=== PATIENT | male | born 1970 | race Caucasian/White ===

== ENCOUNTER 2024-03-08 18:08 | Emergency (ER) | payer BC, SELFPAY ==
--- NOTE | ~2024-03-08 | XR_ITS ---
CHEST RADIOGRAPH, PA AND LATERAL CLINICAL HISTORY: CHEST TIGHTNESS SOB . COMPARISON: None available TECHNIQUE: PA and lateral views of the chest. FINDINGS The cardiomediastinal silhouette is unremarkable. The lungs are clear. Visualized osseous structures and soft tissues are unremarkable. IMPRESSION: No focal infiltrate or effusion. Reviewed, dictated and finalized at location [facility]
[2024-03-08 18:35] VITALS: BP 127/88; PULSE 75; RESP 20; TEMP 36.4; O2SAT 97
--- NOTE | 2024-03-08 22:52 | ECG_ITS ---
Test Date: 2024-03-08 23:30:57 Measurements Intervals Welch Rate: 70 P: 11 NC: 159 QRS: 19 QRSD: 97 T: 22 QT: 396 QTc: 429 Interpretive Statements SINUS RHYTHM MODERATE T-WAVE ABNORMALITY, CONSIDER LATERAL ISCHEMIA [-0.1+ mV T-WAVE IN I/aVL/V5/V6] MODERATE T-WAVE ABNORMALITY, CONSIDER INFERIOR ISCHEMIA [-0.1+ mV T-WAVE IN II/aVF] No previous ECG available for comparison Electronically Signed On 03-09-2024 11:55:01 TRAINING CONSULTANT by Liv Tan
[2024-03-08 23:11] VITALS: BP 138/89; PULSE 72; PULSE 81; RESP 20; TEMP 36.6; O2SAT 99
[2024-03-08 23:12] VITALS: O2SAT 99
[2024-03-08 23:26] LABS: Basophils Percent Auto 0.4 % (0.2-1.2); Eosinophils Absolute Auto 0.1 K/mm3 (0-0.3); Eosinophils Percent Auto 1.3 % (0-4.4); Hematocrit 44.4 % (42.0-52.0); Hemoglobin 15.3 g/dL (14.0-18.0); Immature Granulocyte Absolute 0.02 K/mm3 (0.00-0.031); Immature Granulocyte Percent A 0.2 % (0-0.5); Immature Platelet Fraction Pct 5.4 % (0.9-11.2); Lymphocytes Absolute Auto 1.99 K/mm3 (0.9-3.2); Lymphocytes Percent Auto 23.8 % (18.3-44.2); Mean Corpuscular HGB Conc 34.5 g/dl (32-36); Mean Corpuscular Hemoglobin 31.5 pg (26-34); Mean Corpuscular Volume 91.4 fl (80-100); Mean Platelet Volume 11.1 fl (7.4-10.4); Monocytes Absolute Auto 0.5 K/mm3 (0.1-0.6); Monocytes Percent Auto 6.1 % (2.6-8.5); Neutrophils Absolute Auto 5.7 K/mm3 (1.3-6.7); Neutrophils Percent Auto 68.2 % (45.5-73.1); Platelet Count Result 138 k/mm3 (150-375); Red Blood Count 4.86 M/mm3 (4.6-6.20); Red Cell Distribution Width 13.6 % (11.5-14.5); White Blood Count 8.4 K/mm3 (4.5-10.0)
[2024-03-08 23:35] LABS: Alanine Aminotransferase 34 U/L (6-50); Albumin Level 4.1 g/dL (3.5-5.1); Alkaline Phosphatase 96 U/L (38-126); Anion Gap 8 mmol/L (4-12); Aspartate Amino Transferase 26 U/L (17-59); Bilirubin,Total 0.6 mg/dL (0.2-1.3); Blood Urea Nitrogen 18 mg/dL (9-20); Calcium 9.1 mg/dL (8.4-10.2); Carbon Dioxide 28 mmol/L (22-30); Chloride 102 mmol/L (98-107); Estimated CRCL calculation 114 ml/min; Estimated Glomerular Filt Rate > 60; Glucose 153 mg/dL (65-110); Lipase 47 U/L (23-300); Potassium 3.5 mmol/L (3.4-5.0); Prothrombin Time 13.5 Seconds (11.1-14.7); Sodium 138 mmol/L (137-145)
[2024-03-08 23:36] LABS: Partial Thromboplastin Time 26.3 Seconds (22.3-36.8)
[2024-03-08 23:40] LABS: D Dimer < 0.27 ug/mL (<0.48)
[2024-03-08 23:46] LABS: Troponin I < 0.012 ng/mL (0.000-0.034)
--- NOTE | 2024-03-09 00:50 | ED_ITS ---
HPI - SOB/Dyspnea General Chief Complaint: Shortness of Breath/Dyspnea Stated Complaint: SOB, chest tightness Time Seen by Provider: 03/08/24 23:24 Source: patient Mode of arrival: ambulatory Limitations: no limitations History of Present Illness HPI Narrative: Patient is 53-year-old male, with PMH of HTN, DM, who presents the ED with report of shortness of breath. Patient reports over the last 3-4 days, he has been having increased shortness of breath. He states it seems to occur with exertion. Denies shortness of breath with laying flat. Denies PND. States he occasionally feels a sensation or tightness in his chest, but denies chest pain. He went to [facility] today, tested negative for COVID/flu, and had EKG performed, which he states was told was abnormal. He was then discharged with the diagnosis of upper respiratory infection. He contacted his primary care doctor about this and was referred to the ED for further evaluation. Patient does note history of previously diagnosed T-wave inversions. Denies previous cardiac history, but does have strong family history. Denies lower extremity pain or swelling. Does have some nasal congestion, but denies significant cough. Denies fevers. Related Data Allergies Allergy/AdvReac Type Severity Reaction Status Date / Time No Known Allergies Allergy Verified 03/08/24 18:10 Review of Systems 2 Review of Systems: All systems reviewed & are unremarkable except as noted in HPI. All systems reviewed & are unremarkable except as noted in HPI and below PMFSH Past Medical History Medical History (Updated 03/09/24 @ 02:42 by Radha Wang PA-C) Diabetes HTN (hypertension) Exam 2 Narrative: GENERAL: Well appearing, obese with BMI of 38.7, non-toxic, in no acute distress. HEAD: Normocephalic, atraumatic. RESPIRATORY: Airway patent, respirations nonlabored. Clear to auscultation bilaterally, no rales, rhonchi, wheezing. No significant focal lung sounds. CARDIOVASCULAR: Regular rate and rhythm without murmurs, rubs, or gallops. MUSCULOSKELETAL: Moves all extremities. No gross deformities. No peripheral edema. No calf tenderness. SKIN: Warm, dry, normal color. NEURO: A&O X3. Speech clear. Cranial nerves II-XII grossly intact. Steady gait. No ataxic movements. PSYCHIATRIC: Appropriate mood and affect. Normal interaction. Course Vital Signs Vital signs: Vital Signs Temperature 97.6 F 03/08/24 18:35 Pulse Rate 75 03/08/24 18:35 Respiratory Rate 20 03/08/24 18:35 Blood Pressure 127/88 03/08/24 18:35 Pulse Oximetry 97 03/08/24 18:35 Oxygen Delivery Room Air 03/08/24 18:35 Temperature 97.8 F 03/08/24 23:11 Pulse Rate 72 03/08/24 23:11 Respiratory Rate 20 03/08/24 23:11 Blood Pressure 138/89 03/08/24 23:11 Pulse Oximetry 99 03/08/24 23:12 Oxygen Delivery Room Air 03/08/24 23:12 MDM - SOB/Dyspnea MDM Narrative Medical decision making narrative: Patient presents to ED with 3-4 day history of shortness of breath, intermittent chest tightness. Vital signs are stable upon arrival. Patient is in no acute distress. No evidence of respiratory distress. EKG does shows evidence of T- wave inversions, but patient reports this is chronic for him. Troponin is undetectable. D-dimer is within normal range. Chest x-ray is clear. Remainder of basic laboratory studies are unremarkable. Overall workup is reassuring, non revealing. I have low suspicion for ACS at this time. Suspicious for URI. Patient did test negative for COVID influenza at urgent care today. Declined further viral swabs here. Overall feel patient is safe for discharge home. He does have some risk factors for heart disease and given strong FHx, I recommended that patient have close follow-up with his primary care doctor and Cardiology for further evaluation and potential outpatient stress testing. He states his PCP is aware of ED visit. Discussed very strict return precautions should symptoms continue or worsen. Patient voiced understanding. He feels comfortable going home. He was ambulated throughout the ED and no hypoxia was noted. He tolerated this very well. Patient discharged in stable condition. Vital signs stable at time of D/C. Medical Records Attestation: I reviewed the patient's medical records. Lab Data Attestation: I reviewed the patient's lab results. 03/08/24 23:18 03/08/24 23:18 Labs: Lab Results 03/08/24 Range/Units 23:18 WBC 8.4 (4.5-10.0) K/mm3 RBC 4.86 (4.6-6.20) M/mm3 Hgb 15.3 (14.0-18.0) g/dL Hct 44.4 (42.0-52.0) % MCV 91.4 (80-100) fl MCH 31.5 (26-34) pg MCHC 34.5 (32-36) g/dl RDW 13.6 (11.5-14.5) % Plt Count 138 L (150-375) k/mm3 MPV 11.1 H (7.4-10.4) fl Immature Gran % (Auto) 0.2 (0-0.5) % Neut % (Auto) 68.2 (45.5-73.1) % Lymph % (Auto) 23.8 (18.3-44.2) % [place] % (Auto) 6.1 (2.6-8.5) % Eos % (Auto) 1.3 (0-4.4) % Baso % (Auto) 0.4 (0.2-1.2) % Lymph # (Auto) 1.99 (0.9-3.2) K/mm3 [place] # (Auto) 0.5 (0.1-0.6) K/mm3 Eos # (Auto) 0.1 (0-0.3) K/mm3 Baso # (Auto) 0.0 (0.0-0.1) K/mm3 Abs Immat Gran (auto) 0.02 (0.00-0.031) K/mm3 Absolute Neuts (auto) 5.7 (1.3-6.7) K/mm3 Absolute Nucleated RBC 0.000 (0.0-0.012) K/mm3 Nucleated RBC % 0.0 (0.0-0.2) % % Immature Plt Fraction 5.4 (0.9-11.2) % PT 13.5 (11.1-14.7) Seconds INR 1.0 APTT 26.3 (22.3-36.8) Seconds D-Dimer < 0.27 (<0.48) ug/mL Sodium 138 (137-145) mmol/L Potassium 3.5 (3.4-5.0) mmol/L Chloride 102 (98-107) mmol/L Carbon Dioxide 28 (22-30) mmol/L Anion Gap 8 (4-12) mmol/L BUN 18 (9-20) mg/dL Creatinine 0.84 (0.7-1.3) mg/dL Estim Creat Clear Calc 114 ml/min Estimated GFR > 60 (59 - ) Glucose 153 H (65-110) mg/dL Calcium 9.1 (8.4-10.2) mg/dL Total Bilirubin 0.6 (0.2-1.3) mg/dL AST 26 (17-59) U/L ALT 34 (6-50) U/L Alkaline Phosphatase 96 (38-126) U/L Troponin I < 0.012 (0.000-0.034) ng/mL Total Protein 7.0 (6.3-8.2) g/dL Albumin 4.1 (3.5-5.1) g/dL Lipase 47 (23-300) U/L Imaging Data Attestation: I personally reviewed and interpreted this imaging study as follows: Radiologist's impression: ITS Impressions Chest X-Ray 03/08/24 23:39 IMPRESSION: No focal infiltrate or effusion. ECG Data EKG #1: Attestation: I personally reviewed and interpreted this ECG as follows: ECG completion date: 03/08/24 ECG completion time: 23:30 EKG Interpretation: normal rate (70), sinus rhythm and non-specific ST changes Discharge Plan Discharge Clinical Impression: Shortness of breath Patient Disposition: Home, Self-Care Condition: Stable Instructions: Antibiotic Form, Upper Respiratory Infection (ED), Dyspnea (ED), Shortness of Breath (ED) Additional Instructions: Your workup here was reassuring. Recommend close follow-up with primary care doctor and Cardiology for further evaluation. Continue to monitor symptoms. Return to the ED if you experience worsening or severe symptoms, chest pain, pain or swelling in legs, passing out, severe dizziness, or any other symptoms of concern. Patient Language: Iranian Follow-up/Referrals: Baljinder Gonzalez MD [Physician] - (CARDIOLOGY) Kaylee,Omari Deluca MD [Primary Care Provider] - Time of Disposition: 01:37
--- OUTSIDE RECORDS SUMMARY | 2024-03-09 06:14 | XMS_ITS | CONTINUITY OF CARE DOCUMENT ---
Author Name ari chapman Address Unknown Organization [facility] Address [address] [place] [address] Phone [phone] Care Team Providers Care Attending Urologist Name Role Phone Rei MIRELES, Naida Unavailable INSURANCE PROVIDERS Payer name Policy type / Coverage type J Luis red constitution party ID [facility] [id number]
--- OUTSIDE RECORDS SUMMARY | 2024-03-09 06:24 | XMS_ITS | Data Portability ---
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 Plan of Treatment Reminders Order Date Submit Date Provider Last Modified By Organization Details Last Modified Time Details Appointments None record ed. Lab None record ed. Referral None record ed. Procedures None record ed. Surgeries None record ed. Imaging None record ed. Medication Orders None record ed. Patient TargetsNo targets recorded. Patient InstructionsNo instructions recorded. Reason for Referral None Reported. Results Created Date Observation Date Name Description Value Unit Range Abnormal Flag Note LastModifiedBy Organization Detail LastModifiedTime 01/12/20 22 01/11/2022 HEMOG LOBIN A1C HA1C 8.9 % 4.0-6. 0 high Diabe merrill Scree ignacio Crite abhijit: <5.7% Consi stent with absen ce of diabe merrill 5.7-6 .4% Consi stent with incre ased risk for diabe merrill (pred iabet es) >OR=6 .5% Consi stent with diabe merrill REFER ENCE: Diabe merrill Care 2016, 39(Olivares ppl.1 ):s13 -s22 Not Available [facility] (Lab) [address] [place], [address], 01/11/2022 20:32:35 01/12/20 22 01/11/2022 T3 FREE free T3 3.7 pg/mL 2.77-5 .27 Not Available [facility] (Lab) [address] [place], [address], 01/11/2022 18:50:29 01/12/20 22 01/11/2022 CBC/C OMPLE TE BLD COUNT W/DIF F white blood cells 3.8 x10'3 /uL 4.2-10 .8 low Not Available [facility] (Lab) [address] [place], [address], 01/11/2022 15:45:04 01/12/20 22 01/11/2022 CBC/C OMPLE TE BLD COUNT W/DIF F red blood cells 5.27 x10'6 /uL 4.10-5 .80 Not Available [facility] (Lab) [address] [place], [address], 01/11/2022 15:45:04 01/12/20 22 01/11/2022 CBC/C OMPLE TE BLD COUNT W/DIF F hemoglobin 15.9 g/dL 13.2-1 7.0 Not Available [facility] (Lab) [address] [place], [address], 01/11/2022 15:45:04 01/12/20 22 01/11/2022 CBC/C OMPLE TE BLD COUNT W/DIF F hematocrit 49.1 % 39.3-5 0.0 Not Available [facility] (Lab) [address] [place], [address], 01/11/2022 15:45:04 01/12/20 22 01/11/2022 CBC/C OMPLE TE BLD COUNT W/DIF F mean red cell volume 93.2 fL 80.0-9 7.0 Not Available [facility] (Lab) [address] [place], [address], 01/11/2022 15:45:04 01/12/20 22 01/11/2022 CBC/C OMPLE TE BLD COUNT W/DIF F mean red cell hemoglobin 30.2 pg 27.0-3 3.0 Not Available [facility] (Lab) [address] [place], [address], 01/11/2022 15:45:04 01/12/20 22 01/11/2022 CBC/C OMPLE TE BLD COUNT W/DIF F mean RBC HGB concentratio n 32.4 g/dL 31.0-3 6.0 Not Available [facility] (Lab) [address] [place], [address], 01/11/2022 15:45:04 01/12/20 22 01/11/2022 CBC/C OMPLE TE BLD COUNT W/DIF F red cell distribution width 14.4 % 11.8-1 5.5 Not Available [facility] (Lab) [address] [place], [address], 01/11/2022 15:45:04 01/12/20 22 01/11/2022 CBC/C OMPLE TE BLD COUNT W/DIF F platelets 126 x10'3 /uL 150-40 0 low Not Available [facility] (Lab) [address] [place], [address], 01/11/2022 15:45:04 01/12/20 22 01/11/2022 CBC/C OMPLE TE BLD COUNT W/DIF F mean platelet volume 12.4 fL 9.0-12 .4 Not Available [facility] (Lab) [address] [place], [address], 01/11/2022 15:45:04 01/12/20 22 01/11/2022 CBC/C OMPLE TE BLD COUNT W/DIF F neutrophils 52.6 % 39.0-7 2.0 Not Available [facility] (Lab) [address] [place], [address], 01/11/2022 15:45:04 01/12/20 22 01/11/2022 CBC/C OMPLE TE BLD COUNT W/DIF F lymphocytes 31.4 % 16.0-4 7.0 Not Available [facility] (Lab) [address] [place], [address], 01/11/2022 15:45:04 01/12/20 22 01/11/2022 CBC/C OMPLE TE BLD COUNT W/DIF F monocytes 13.7 % 5.0-12 .0 high Not Available [facility] (Lab) [address] [place], [address], 01/11/2022 15:45:04 01/12/20 22 01/11/2022 CBC/C OMPLE TE BLD COUNT W/DIF F eosinophils 1.8 % 1.0-7. 0 Not Available [facility] (Lab) [address] [place], [address], 01/11/2022 15:45:04 01/12/20 22 01/11/2022 CBC/C OMPLE TE BLD COUNT W/DIF F basophils 0.5 % 0.0-2. 0 Not Available [facility] (Lab) [address] [place], [address], 01/11/2022 15:45:04 01/12/20 22 01/11/2022 CBC/C OMPLE TE BLD COUNT W/DIF F neutrophils, absolute count 1.99 x10'3 /uL 1.5-8. 0 Not Available [facility] (Lab) [address] [place], [address], 01/11/2022 15:45:04 01/12/20 22 01/11/2022 CBC/C OMPLE TE BLD COUNT W/DIF F lymphocytes, absolute count 1.19 x10'3 /uL 1.07-3 .43 Not Available [facility] (Lab) [address] [place], [address], 01/11/2022 15:45:04 01/12/20 22 01/11/2022 CBC/C OMPLE TE BLD COUNT W/DIF F monocytes, absolute count 0.52 x10'3 /uL 0.29-0 .99 Not Available [facility] (Lab) [address] [place], [address], 01/11/2022 15:45:04 01/12/20 22 01/11/2022 CBC/C OMPLE TE BLD COUNT W/DIF F eosinophils, absolute count 0.07 x10'3 /uL 0.02-0 .53 Not Available [facility] (Lab) [address] [place], [address], 01/11/2022 15:45:04 01/12/20 22 01/11/2022 CBC/C OMPLE TE BLD COUNT W/DIF F basophils, absolute count 0.02 x10'3 /uL 0.01-0 .08 Not Available [facility] (Lab) [address] [place], [address], 01/11/2022 15:45:04 01/12/20 22 01/11/2022 PSA SCREE N PSA medicare screen 0.95 NG/mL 0.00-4 .00 Not Available [facility] (Lab) [address] [place], [address], 01/11/2022 13:19:05 01/12/20 22 01/11/2022 TSH thyroid-stim ulating hormone 2.080 uIU/m L 0.465- 4.680 Not Available [facility] (Lab) [address] [place], [address], 01/11/2022 13:18:49 01/12/20 22 01/11/2022 T4 FREE free T4 0.98 NG/dL 0.78-2 .19 Not Available [facility] (Lab) [address] [place], [address], 01/11/2022 13:06:18 01/12/20 22 01/11/2022 LIPID PANEL cholesterol 129 mg/dL 140-19 9 low NIH JAMI NSUS RECOM MENDA TION FOR CATALINA STERO L: ADULT CHILD LOW RISK: <200 <170 BORDE RLINE : <200- 239 ----- HIGH RISK: >240 >200 Not Available [facility] (Lab) [address] [place], [address], 01/11/2022 12:38:57 01/12/20 22 01/11/2022 LIPID PANEL triglyceride s 192 mg/dL 0-150 high NIH JAMI NSUS REPOR T RECOM MENDA TION FOR TRIGL YCERI ORI: ADULT CHILD LOW RISK: <150 ----- BODER LINE: 150-1 99 ----- HIGH RISK: >200 ----- Not Available [facility] (Lab) [address] [place], [address], 01/11/2022 12:38:57 01/12/20 22 01/11/2022 LIPID PANEL HDL cholesterol 33 mg/dL 40- low Not Available [facility] (Lab) [address] [place], [address], 01/11/2022 12:38:57 01/12/20 22 01/11/2022 LIPID PANEL LDL cholesterol, calculated 58 mg/dL 0-130 NIH JAMI NSUS REPOR T RECOM MENDA TIONS FOR LDL: ADULT CHILD LOW RISK <130 <110 (OPTI MAL LDL) <100 ----- BORDE RLINE : 130-1 59 ----- HIGH RISK: >160 >130 A TRIGL YCERI DE RESUL T >400 INVAL IDATE S THE CALCU LATIO N FOR LDL FRACT IONAT ION - THE LDL RESUL T WILL NOT BE REPOR GABY. Not Available [facility] (Lab) [address] [place], [address], 01/11/2022 12:38:57 01/12/2001/11/2022 COMPR EHENS WILLIE METAB OLIC PANEL bilirubin, total 0.90 mg/dL 0.20-1 .30 Not Available [facility] (Lab) [address] [place], [address], 01/11/2022 12:38:51 01/12/20 22 01/11/2022 COMPR EHENS WILLIE METAB OLIC PANEL calcium 8.2 mg/dL 8.4-10 .2 low Not Available [facility] (Lab) [address] [place], [address], 01/11/2022 12:38:51 01/12/20 22 01/11/2022 COMPR EHENS WILLIE METAB OLIC PANEL total protein 6.2 g/dL 6.3-8. 2 low Not Available [facility] (Lab) [address] [place], [address], 01/11/2022 12:38:51 01/12/20 22 01/11/2022 COMPR EHENS WILLIE METAB OLIC PANEL albumin 3.9 g/dL 3.4-5. 0 Not Available [facility] (Lab) [address] [place], [address], 01/11/2022 12:38:51 01/12/20 22 01/11/2022 COMPR EHENS WILLIE METAB OLIC PANEL globulin 2.3 g/dL 2.6-4. 2 low Not Available [facility] (Lab) [address] [place], [address], 01/11/2022 12:38:51 01/12/20 22 01/11/2022 COMPR EHENS WILLIE METAB OLIC PANEL A/G ratio 1.7 ratio 1.0-2. 0 Not Available [facility] (Lab) [address] [place], [address], 01/11/2022 12:38:51 01/12/20 22 01/11/2022 COMPR EHENS WILLIE METAB OLIC PANEL sodium 142 mmol/ L 137-14 5 Not Available [facility] (Lab) [address] [place], [address], 01/11/2022 12:38:51 01/12/20 22 01/11/2022 COMPR EHENS WILLIE METAB OLIC PANEL potassium 3.9 mmol/ L 3.5-5. 1 Not Available [facility] (Lab) [address] [place], [address], 01/11/2022 12:38:51 01/12/20 22 01/11/2022 COMPR EHENS WILLIE METAB OLIC PANEL chloride 107 mmol/ L 98-107 Not Available [facility] (Lab) [address] [place], [address], 01/11/2022 12:38:51 01/12/20 22 01/11/2022 COMPR EHENS WILLIE METAB OLIC PANEL carbon dioxide 27 mmol/ L 22-30 Not Available [facility] (Lab) [address] [place], [address], 01/11/2022 12:38:51 01/12/20 22 01/11/2022 COMPR EHENS WILLIE METAB OLIC PANEL anion gap 11.9 mmol/ L 14-22 low Not Available [facility] (Lab) [address] [place], [address], 01/11/2022 12:38:51 01/12/20 22 01/11/2022 COMPR EHENS WILLIE METAB OLIC PANEL glucose 244 mg/dL 70-99 high Not Available [facility] (Lab) [address] [place], [address], 01/11/2022 12:38:51 01/12/20 22 01/11/2022 COMPR EHENS WILLIE METAB OLIC PANEL BUN 15 mg/dL 8-19 Not Available [facility] (Lab) [address] [place], [address], 01/11/2022 12:38:51 01/12/20 22 01/11/2022 COMPR EHENS WILLIE METAB OLIC PANEL creatinine 0.83 mg/dL 0.66-1 .25 Not Available [facility] (Lab) [address] [place], [address], 01/11/2022 12:38:51 01/12/20 22 01/11/2022 COMPR EHENS WILLIE METAB OLIC PANEL GFR >60 Refer ence Range : [place] ge GFR Healt hy Adult : >60 mL/mi n/1.7 3 m2 Chron ic Kidne y Disea se: 15-60 mL/mi n/1.7 3 m2 Kidne y Failu re: <15/m L/min /1.73 m2 www.n iddk. nih.g ov The MDRD study equat ion has not been valid ated in child marcelina <18 years of age; pregn ant women ; the elder ly >85 years of age; or in some racia l or ethni c subgr oups, such as Hispa nics. Outsi de the valid ated yomi eters , estim ated GFR is less accur ate, requi ring clini tami judgm ent on a case- by-ca se basis . Clini tami inter preta tion for other races and ages must be made by the clini zaid. The MDRD study equat ion has not been valid ated for the evalu ation of serum creat inine relat ed to nutri jose daniel l statu s or medic ation usage . For perso ns <18 years of age, a pedia tric GFR calcu lator is avail able on the [facility] websi te: https :[email or web address] hernandez.[email or web address] [email or web address] carolynn/pr ofess ional s/kdo qi/gf r_cal culat or Not Available [facility] (Lab) [address] [place], [address], 01/11/2022 12:38:51 01/12/20 22 01/11/2022 COMPR EHENS WILLIE METAB OLIC PANEL alkaline phosphatase 114 U/L 38-126 Not Available [facility] (Lab) [address] [place], [address], 01/11/2022 12:38:51 01/12/20 22 01/11/2022 COMPR EHENS WILLIE METAB OLIC PANEL alanine aminotransfe rase 50 U/L 0-[address] [facility] (Lab) [address] [place], [address], 01/11/2022 12:38:51 01/12/20 22 01/11/2022 COMPR EHENS WILLIE METAB OLIC PANEL aspartate aminotransfe rase 30 U/L 15-[address] [facility] (Lab) [address] [place], [address], 01/11/2022 12:38:51 12/16/19 22 12/16/2021 XR, elbow No observ ation record ed. [id number] [id number] [facility] [address] [facility], [place], [address], 04/14/2022 16:41:40 Result Notes None recorded. Problems Name Problem SNOMED Code Status Onset Date Resolution Date Notes Provider Name and Address Organization Details Recorded Time Acute sinusitis 86218051 Active 2021 Not Available [facility] 3 16:12:42 Pain of right elbow joint 5558211247269 9109 Active 2021 Not Available [facility] 3 16:12:42 Blood chemistry outside reference range 280812346 Active 2021 Not Available [facility] 3 16:12:42 Diabetic on diet only 562091890 Active 2020 Not Available [facility] 3 16:12:42 Eruption 423530161 Active 2021 Not Available [facility] 3 16:12:42 Type 2 diabetes mellitus without complicati on 573769930 Active 2021 Not Available [facility] 3 16:12:42 Pain in left foot 3169303603031 07 Active 2018 Not Available [facility] 3 16:12:42 Pain in right foot 2403379115069 07 Active 2018 Not Available [facility] 3 16:12:42 Fever 553037798 Active 2021 Not Available [facility] 3 16:12:42 Cough 39277395 Active 2021 Not Available [facility] 3 17:56:55 Essential hypertensi on 42787701 Active 2021 Not Available [facility] 3 16:12:42 Tinea pedis 5510689 Active 2021 Not Available [facility] 3 16:12:42 Pain in testicle 42166899 Active Not Available [facility] 3 16:12:42 Diabetes mellitus 45329725 Active 2021 Not Available [facility] 3 16:12:42 Sleep apnea 92836716 Active 2020 Not Available [facility] 3 16:12:42 Weight gain 7574303 Active 2022 Not Available [facility] 3 16:12:42 Skin lesion 27911168 Active 2021 Not Available [facility] 3 16:12:42 Problem Notes None recorded. Procedures Surgical History Date Name Laterality Status Provider Name and Address Organization Details Recorded Time Vasectomy completed Not Available [facility] 0 04/14/2022 16:39:51 Imaging Results Imaging Date Name Status LastModified by Organiz ation Details LastModified Time 12/16/2021 XR, elbow completed [id number] [id number] [address], [place], [address], 04/14/2022 16:41:40 Procedure Notes None recorded. Medical Equipment None Reported. Medications Name Sig Start Date Stop Date Status Note LastModified by Organization Details LastModified Time amoxicillin 500 mg capsule 11/03 completed Not Available Not Available Not Available azithromyci n 250 mg tablet TK 2 TS PO ON DAY 1, THEN TK 1 T PO D FOR 4 DAYS 04/08 completed Not Available Not Available Not Available ondansetron HCl 4 mg tablet TAKE 1 TABLET BY MOUTH EVERY 8 HOURS NEEDED 04/20 completed Not Available Not Available Not Available prednisone 20 mg tablet TAKE 3 TABLETS BY MOUTH EVERY DAY FOR 5 DAYS 07/20 completed Not Available Not Available Not Available phentermine 37.5 mg tablet take 1 tablet 2hrs after breakfast active Not Available Not Available No t Available OneTouch Ultra Test strips USE TO TEST BLOOD SUGAR TWICE DAILY active Not Available Not Available No t Available benzonatate 100 mg capsule TAKE 1 CAPSULE BY MOUTH EVERY 8 HOURS NEEDED 07/20 completed Not Available Not Available Not Available lisinopril 10 mg tablet Take 1 tablet every day by oral route. 12/03 completed Not Available Not Available Not Available montelukast 10 mg tablet TAKE 1 TABLET BY MOUTH EVERY DAY 12/03 completed Not Available Not Available Not Available codeine 10 mg-guaifene sin 100 mg/5 mL oral liquid TAKE 7.5 ML BY MOUTH EVERY 4 HOURS NEEDED 12/03 completed Not Available Not Available Not Available testosteron e cypionate 200 mg/mL intramuscul ar oil 11/03 completed Not Available Not Available Not Available ketoconazol e 2 % topical cream APPLY TO THE AFFECTED AREA(S) BY TOPICAL ROUTE ONCE DAILY active Not Available Not Available No t Available amoxicillin 875 mg-potassiu m clavulanate 125 mg tablet TAKE 1 TABLET BY MOUTH EVERY 12 HOURS FOR 10 DAYS 07/20 completed Not Available Not Available Not Available Fish Oil 12/03 completed Not Available Not Available Not Available Cinnamon 12/03 completed Not Available Not Available Not Available Ozempic 0.25 mg or 0.5 mg (2 mg/1.5 mL) subcutaneou s pen injector inject 0.25mg wkly for 4wks then go to 0.5mg wkly 04/14 completed Not Available Not Available Not Available OneTouch Ultra2 Meter USE TO TEST BLOOD SUGAR DIRECTED TWICE DAILY active Not Available Not Available No t Available OneTouch Delica Plus Lancet 33 gauge active Not Available Not Available Not Available Vitals Date Recorded Body mass index (BMI) Body height Body weight Provider Name and Address Organization Details Last Updated DateTime 10/30/2021 39.3 kg/m2 175.26 cm 412099.57 g Not Available [facility] 04/14/2022 16:40:36 Date Recorded Body mass index (BMI) Body height Heart rate Body temperature Body weight Systolic blood pressure Diastolic blood pressure Provider Name and Address Organization Details Last Updated DateTime 2 40.2 kg/m2 175.26 cm 81 /min 98.3 [degF] 971831. 12 g 138 mm[Hg] 82 mm[Hg] Not Available [facility] 3 16:40:34 Date Recorded Body mass index (BMI) Body height Body weight Provider Name and Address Organization Details Last Updated DateTime 12/15/2021 38.4 kg/m2 175.26 cm 922109.02 g Not Available [facility] 04/14/2022 16:40:36 Date Recorded Body mass index (BMI) Body height Heart rate Body temperature Body weight Systolic blood pressure Diastolic blood pressure Provider Name and Address Organization Details Last Updated DateTime 2 39.7 kg/m2 175.26 cm 69 /min 98.6 [degF] 862283. 35 g 124 mm[Hg] 72 mm[Hg] Not Available [facility] 3 16:40:34 Date Recorded Body mass index (BMI) Body height Heart rate Body temperature Body weight Systolic blood pressure Diastolic blood pressure Provider Name and Address Organization Details Last Updated DateTime 3 38.8 kg/m2 175.26 cm 61 /min 97.6 [degF] 213849. 79 g 128 mm[Hg] 82 mm[Hg] Not Available [facility] 3 16:40:34 Social History Question Answer Notes LastModified by Organizat ion Details LastModified Time Tobacco Smoking Status Never Smoker Not Available [facility] 04/14/2022 16:39:47 Do You Have An Advance Directive? No [id number] Information not available 04/14/2022 What Is Your Level Of Alcohol Consumption? None MIGRATION.87397 83317 Information not available 04/14/2022 What Is Your Level Of Caffeine Consumption? None MIGRATION.50021 77408 Information not available 04/14/2022 In The 14 Days Before Symptom Onset, Have You Had Close Contact With A Laboratory-confi rmed COVID-19 While That Case Was Ill? No [id number].29849 [id number] Information not available 04/14/2022 In The 14 Days Before Symptom Onset, Have You Had Close Contact With A Person Who Is Under Investigation For COVID-19 While That Person Was Ill? No [id number].40390 [id number] Information not available 04/14/2022 What Type Of Diet Are You Following? SPECIFIC Low Carb Diet MIGRATION.57345 87483 Information not available 04/14/2022 What Is The Highest Grade Or Level Of School You Have Completed Or The Highest Degree You Have Received? 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 No MIGRATION.21492 67474 Information not available 04/14/2022 What Is The Fluoride Status Of Your Home? Unknown MIGRATION.38024 59954 Information not available 04/14/2022 Are There Any Guns Present In Your Home? Yes MIGRATION.82977 79815 Information not available 04/14/2022 Do You Use Insect Repellent Routinely? No MIGRATION.81325 86696 Information not available 04/14/2022 Where Do You Live? [facility] MIGRATION.20872 52708 Information not available 04/14/2022 Do You Have A Medical Power Of Senior Mechanical Project Manager? No MIGRATION.41623 08595 Information not available 04/14/2022 What Was The Date Of Your Most Recent Tobacco Screening? 04/08/2022 MIGRATION.51063 62845 Information not available 04/14/2022 Do You Have Any Pets? No MIGRATION.46062 12288 Information not available 04/14/2022 What Is Your Relationship Status? MIGRATION.38669 56313 Information not available 04/14/2022 Do You Use Your Seat Belt Or Car Seat Routinely? Yes MIGRATION.34756 66567 Information not available 04/14/2022 Do You Have Smoke And Carbon Monoxide Detectors In Your Home? Yes MIGRATION.42514 00841 Information not available 04/14/2022 Are You Passively Exposed To Smoke? No MIGRATION.81094 45020 Information not available 04/14/2022 Are There Any Smokers In Your House? No MIGRATION.92618 72575 Information not available 04/14/2022 What Types Of Sporting Activities Do You Participate In? None MIGRATION.87121 11723 Information not available 04/14/2022 Do You Feel Stressed (tense, Restless, Nervous, Or Anxious, Or Unable To Sleep At Night)? [id number] MIGRATION.96662 72741 Information not available 04/14/2022 Do You Use Any Illicit Or Recreational Drugs? No MIGRATION.82847 34759 Information not available 04/14/2022 Do You Use Sunscreen Routinely? No MIGRATION.41666 07574 Information not available 04/14/2022 Has Tobacco Cessation Counseling Been Provided? No Not Needed-ne brandy Smoked MIGRATION.06355 01353 Information not available 04/14/2022 Have You Recently Traveled Abroad? No MIGRATION.90458 86468 Information not available 04/14/2022 Do You Have Any Dietary Restrictions? No MIGRATION.63050 84880 Information not available 04/14/2022 Do You Or Have You Ever Used Any Other Forms Of Tobacco Or Nicotine? No MIGRATION.98096 38478 Information not available 04/14/2022 Sex: Male Functional Status Question Answer Note LastModified by Organizat ion Details LastModified Time What is your exercise level? None [id number] Information not available 04/14/2022 Mental Status None recorded. Family History Relationship Description Onset Age of this Age Resolved Age Notes LastModified by Organization Details LastModified Time Father Chronic obstructive pulmonary disease [id number] Not available 04/14/2022 16:39:51 Father Coronary artery bypass grafts x 4 [id number].597 [id number] Not available 04/14/2022 16:39:51 Father Heart disease MIGRATION.764 [id number] Not available 04/14/2022 16:39:51 Sister Cerebrovascu lar accident 38 [id number].375 [id number] Not available 04/14/2022 16:39:51 Brother Myocardial infarction 47 MIGRATION.824 [id number] Not available 04/14/2022 16:39:51 Mother Myocardial infarction 45 MIGRATION.348 [id number] Not available 04/14/2022 16:39:52 Mother Coronary artery bypass grafts x 4 MIGRATION.125 [id number] Not available 04/14/2022 16:39:52 Mother Heart disease MIGRATION.972 [id number] Not available 04/14/2022 16:39:52 Mother Diabetes mellitus MIGRATION.760 [id number] Not available 04/14/2022 16:39:52 Mother Malignant tumor of lung deceas ed MIGRATION.794 [id number] Not available 04/14/2022 16:39:52 Mother Kidney disease MIGRATION.481 [id number] Not available 04/14/2022 16:39:52 Medical History Condition Response NERVE DISEASE N BLINDNESS N RHEUMATIC FEVER N KIDNEY STONES N BLADDER PROBLEMS N MRSA N OTHER # 1 N POLIO N LUNG DISEASE/DISORDER N HISTORY OF DRUG ABUSE N RADIATION / CHEMOTHERAPY N COPD N Other # 2 N BLOOD DISEASES N EAR OR HEARING PROBLEMS N MUMPS N SHINGLES N DEPRESSION (INCLUDING POST ) N BOWEL PROBLEMS N STROKE/TIA N ULCERS N BENIGN PROSTATIC HYPERPLASIA N MEASLES N HYPOTENSION N MYOCARDIAL INFARCTION N OBESITY N GERD/NAUSEA N ANEURYSM N URINARY/BLADDER/KIDNEY PROBLEMS N CORONARY ARTERY DISEASE (CAD) N ADDICTION CONCERNS N Impotence N ENDOMETRIOSIS N USE OF BLOOD THINNERS N SKIN PROBLEMS N GASTROINTESTINAL DISORDER N PERIPHERAL VASCULAR DISEASE N MUSCLE,JOINT OR BONE PROBLEMS N GASTROINTESTINAL BLEEDING N BLOOD CLOTS N ASTHMA N CATARACTS N ERECTILE DYSFUNCTION N VARICOSITIES N GI PROBLEMS N Low Testosterone N INFERTILITY N AIDS/HIV N CHEMOTHERAPY / RADIATION N LIVER DISEASE N MALE HYPOGONADISM N HYPERTENSION N Deficiency N TOURETTE'S N ANXIETY DISORDER N BLOOD TRANSFUSION N ANEMIA/BLOOD DISORDER N CHRONIC EAR INFECTIONS N BRONCHITIS N TUBERCULOSIS N GLAUCOMA N FOOT PROBLEM N DIVERTICULITIS N SLEEP APNEA Y CHICKENPOX Y INFECTIOUS DISEASE N PROSTATE N HEART ARRHYTHMIA N INSOMNIA N HIGH CHOLESTEROL / HYPERLIPIDEMIA N HYPERTHYROIDISM N EYE PROBLEMS N EDEMA N CHRONIC PAIN SYNDROME N HYPOTHYROIDISM N CONSTIPATION N CAROTID BLOCKAGE N BACK / NECK PROBLEMS N HAVE YOU BEEN HOSPITALIZED OR SEEN IN [facility] IN THE PAST YEAR ? N ATHEROSCLEROSIS N BREAST PROBLEMS N DIALYSIS N ECZEMA N OSTEOPOROSIS N ARTHRITIS N APPENDICITIS N DIABETES, TYPE Y BAD TEETH N ENT N HEARTBURN / REFLUX N AUTISM SPECTRUM DISORDER (ASD) N HEPATITIS / LIVER DISEASE N GOUT N SLEEP DISORDER N ALZHEIMER'S DISEASE N Brain Problems N HERPES N DEMENTIA N SEIZURES/EPILEPSY N HEADACHES/MIGRAINES N VASCULAR DISEASE N PACEMAKER N Blood Disorder N DIZZINESS N KIDNEY DISEASE N HEART DISEASE/HEART PROBLEMS Y MULTIPLE SCLEROSIS N CARDIAC ARRHYTHMIA N CANCER: SPECIFY N Gall [place]ones N ATRIAL FIBRILLATION N PULMONARY EMBOLISM N AUTOIMMUNE DISEASE N Immunizations Vaccine Type Date Status Note Provider Nam e and Address Organization Details Recorded Time COVID-19, mRNA, LNP-S, PF, 30 mcg/0.3 mL dose 03/21/2020 completed Not Available [facility] 3 16:12:42 COVID-19, mRNA, LNP-S, PF, 30 mcg/0.3 mL dose 02/29/2020 completed Not Available [facility] 3 16:12:42 Past Encounters Encounter ID Performer Location Encounter Start Date Encounter Closed Date Diagnosis/Indication Diagnosis SNOMED-CT Code Diagnosis ICD10 Code Diagnosis Note [id number] [facility] [address] [address] 11/03/2020 00:00:00 11/16/2020 17:21:05 [id number] [facility] [place] [address] [place] [address] 03/02/2021 00:00:00 03/02/2021 11:49:07 [id number] [facility] [address] [place] [address] [address]., [address] [address] 04/20/2021 00:00:00 04/20/2021 21:59:44 [id number] [facility] [address] [place] [address] Barbie., [address] [address] 07/20/2021 00:00:00 07/20/2021 21:05:20 [id number] _ATHENA_M IGRATION_ DEFAULT_1 _1 , 10/30/2021 00:00:00 11/01/2021 14:48:00 [id number] [facility] [address] [place] [address] [place]., [address] [address] 12/03/2021 00:00:00 12/03/2021 23:09:08 [id number] [facility] [place] [address] [place] [address] 12/15/2021 00:00:00 12/15/2021 16:21:42 [id number] [facility] Internal Med [facility] [address] [place] [address] [place]., [address] [address] 01/11/2022 00:00:00 02/21/2022 17:33:13 [id number] [facility] Internal [facility] [address] [place] [address] [place]rise., [address] [address] 04/08/2022 00:00:00 04/08/2022 22:06:19 Health Concerns Section Related Observation LastModified by Organization Detai ls LastModified Time None Recorded Concern Status LastModified by Organization Details LastModified Time None Recorded Advance Directives Directive N: Payers None recorded.
== END 2024-03-09 01:30 | disposition home or self-care (01) ==
PROVIDERS: Emergency Medicine; Emergency Provider Physician Assistant; PCP Family Medicine
DX: R06.02 Shortness of breath (principal); E11.9 Type 2 diabetes mellitus without complications; I10 Essential (primary) hypertension
CPT/HCPCS: 36415; 71046; 80053; 83690; 84484; 85025; 85055; 85380; 85610; 85730; 93005; 99284

== ENCOUNTER 2024-10-22 11:11 | Outpatient (CLI) | payer BC, SELFPAY ==
--- NOTE | ~2024-10-22 | XR_ITS ---
Examination: XR chest 2V Clinical History: L sided posterior rib pain Comparison: 03/08/2024 Technique: PA and Lateral Findings: Heart size mildly enlarged but unchanged. Lungs clear. No acute bony abnormality. IMPRESSION: 1. No acute cardiopulmonary findings. Reviewed, dictated and finalized at location R.
--- NOTE | ~2024-10-22 | XR_ITS ---
EXAMINATION:XR cervical spine min 6V DATE: 10/22/2024 11:56 INDICATION: Left cervical radiculopathy. TECHNIQUE: AP, lateral, lateral flexion, lateral extension, lateral swimmers, left and right oblique, open-mouth odontoid and submental views of the cervical spine are provided. COMPARISON: None FINDINGS: 12 degrees lower cervical dextrocurvature. Sagittal alignment is normal. Odontoid is intact. Normal atlantoaxial interval. Vertebral body heights are normal. Disc spaces are normal. There is normal motion with flexion and extension. There is multilevel mild bilateral cervical uncovertebral osteoarthri tis. Mild facet osteoarthritis at C2-C3. Mild neural foraminal stenosis on the left at C4-C5. No definitive neural from stenosis identified on the right however the neural foramina are less well profiled than on the left oblique view. Prevertebral soft tissues are normal. Visualized upper lungs are clear. IMPRESSION: 1. 12 degrees lower cervical dextrocurvature with mild facet osteoarthritis at C2-C3 and multilevel mild cervical uncovertebral osteoarthritis. Reviewed, dictated and finalized at location A.
== END 2024-10-22 11:12 | disposition home or self-care (01) ==
LOC: MICIMG 11:14
PROVIDERS: PCP Family Medicine; Visit Provider Chiropractor
DX: M54.12 Radiculopathy, cervical region (principal); R07.81 Pleurodynia; M50.30 Other cervical disc degeneration, unspecified cervical region
CPT/HCPCS: 71046; 72052